=== PATIENT | female | born 1970 | race Two or more races ===

== ENCOUNTER 2017-10-22 09:05 | Emergency (ER) | payer MEDICAID ==
[2017-10-22] MEDS: SOD CHLORIDE 0.9% 1,000 ML IV (09:45)
[2017-10-22] MEDS: morphine 4 MG/ML VIAL IV (09:45)
[2017-10-22] MEDS: ONDANSETRON 4 MG INJ IV (09:45)
[2017-10-22] MEDS: PROPOFOL 200 MG INJ IV ×2 (10:01→10:13)
== END 2017-10-22 11:27 | disposition home or self-care (01) ==
LOC: E/R 09:05
DX: S43.004A Unspecified dislocation of right shoulder joint, initial encounter (principal); F17.210 Nicotine dependence, cigarettes, uncomplicated; X58.XXXA Exposure to other specified factors, initial encounter; Y92.9 Unspecified place or not applicable
CPT/HCPCS: 23655; 73030-RT; 94770; 96374; 96375; 99285-25

== ENCOUNTER 2018-07-11 08:24 | Emergency (ER) | payer MEDICAID ==
[2018-07-11] MEDS: HYDROmorphONE 1 MG/ML SYG IV (08:44)
[2018-07-11] MEDS: ONDANSETRON (ODT) 4 MG TAB ODT (08:44)
[2018-07-11] MEDS: PROPOFOL 200 MG INJ IV (10:22)
== END 2018-07-11 11:25 | disposition home or self-care (01) ==
LOC: E/R 08:24
DX: S43.004A Unspecified dislocation of right shoulder joint, initial encounter (principal); X58.XXXA Exposure to other specified factors, initial encounter; Y92.9 Unspecified place or not applicable
CPT/HCPCS: 23650; 73030-RT; 93005; 96374; 96375; 99285-25

== ENCOUNTER 2018-08-13 15:11 | Emergency (ER) | payer MEDICAID ==
[2018-08-13 17:38] LABS: ADD MAN DIFF? NO
[2018-08-13 17:41] LABS: WHITE BLOOD COUNT 9.1 10^3/ul (4.8-10.8)
[2018-08-13 17:41] LABS: BASOPHILS % 0.4 % (0.0-2.0); EOSINOPHILS # 0.1 10^3/ul (0.0-0.5); EOSINOPHILS % 0.7 % (0.0-7.0); HEMATOCRIT 32.7 % (37.0-47.0); LYMPHOCYTES # 1.8 10^3/ul (0.8-2.9); LYMPHOCYTES % 20.1 % (15.0-51.0); MEAN CORPUSCULAR HEMOGLOBIN 31.5 pg (29.0-33.0); MEAN CORPUSCULAR HGB CONC 33.6 g/dl (32.0-37.0); MEAN CORPUSCULAR VOLUME 93.7 fl (82.0-101.0); MEAN PLATELET VOLUME 11.5 fl (7.4-10.4); MONOCYTE # 0.6 10^3/ul (0.3-0.9); MONOCYTES % 6.1 % (0.0-11.0); NEUTROPHIL # 6.6 10^3/ul (1.6-7.5); NEUTROPHILS % 72.4 % (39.0-77.0); PLATELET COUNT 177 10^3/UL (140-415); RED BLOOD COUNT 3.49 10^6/ul (4.20-5.40); RED CELL DISTRIBUTION WIDTH 11.8 % (11.5-14.5)
== END 2018-08-13 18:43 | disposition home or self-care (01) ==
LOC: FTE 15:11
DX: N93.9 Abnormal uterine and vaginal bleeding, unspecified (principal); R10.2 Pelvic and perineal pain
CPT/HCPCS: 36415; 76830; 76856; 81025; 85025; 99284-25